=== PATIENT | female | born 1995 | race African-American/Black ===

== ENCOUNTER 2020-11-02 07:06 | Inpatient (IN) | payer MEDICAID, OTHER ==
[2020-11-02] MEDS ORDERED: Ondansetron 4 MG/2 ML SDV IVPUSH PRN (07:14)
[2020-11-02] MEDS ORDERED: Sodium Chloride 0.9% 10 ML Syringe FLUSH PRN (07:14)
[2020-11-02] MEDS ORDERED: Nalbuphine 10 MG/1 ML Vial IVPUSH PRN (07:14)
[2020-11-02] MEDS ORDERED: Oxytocin/Lactated Ringers 10 UNIT/1,000 ML BAG IV SCH ×3 (07:15)
--- NOTE | 2020-11-02 07:17 | PCM.LDHP ---
L&D History of Present Illness - General Date of Service: 11/02/20 Admit Problem/Dx: Patient Status Order with Admit Dx/Problem 11/02/20 07:14 Patient Status [ADT] Routine Admission Diagnosis/Problem Admission Diagnosis/Problem Gestational diabetes mellitus Source of Information: Patient History Limitations: Reports: No Limitations - History of Present Illness Introduction:: Patient is a 24 y/o at 39 1/7 wks who presents for IOL for GODMA2. Doing well. Good FM. 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 (Approximate): - Past Surgical History HEENT Surgical History: Reports: Other (See Below) (Neck biopsy) Social & Family History - Tobacco Use Tobacco Use Status *Q: Never Tobacco User - Alcohol Use Alcohol Use History: No - Recreational Drug Use Recreational Drug Use: No H&P Review of Systems - Review of Systems: Review Of Systems: See Below General: Reports: No Symptoms Pulmonary: Reports: No Symptoms Cardiovascular: Reports: No Symptoms Gastrointestinal: Reports: No Symptoms Genitourinary: Reports: No Symptoms Musculoskeletal: Reports: No Symptoms Psychiatric: Reports: No Symptoms Neurological: Reports: No Symptoms L&D Exam - Exam Exam: See Below - OB Specific Contraction Intensity: Irritability Movement: Active Heart Tones: Present Heart Tones per Min: 130 Heart Rate (FHR) Variability: Moderate (6-25 bmp) Presentation: Vertex - Barr Score Barr Score Cervix Position: Midposition Barr Score Consistency: Soft Barr Score Effacement: 51-70% Barr Score Dilation: 3-4 cm Barr Score Infant's Station: -1 ,0 Barr Score Total: 9 - Exam General: Alert, Oriented, Cooperative Lungs: Clear to Auscultation, Normal Respiratory Effort Cardiovascular: Regular Rate, Regular Rhythm GI/Abdominal Exam: Soft, Non-Tender Genitourinary: Normal external exam Extremities: Normal Inspection Skin: Warm, Dry, Intact - Patient Data Result Diagrams: 11/02/20 07:22 - Problem List (1) 39 weeks gestation of SNOMED Code(s): 26390628 ICD Code: Z3A.39 - 39 WEEKS GESTATION OF Status: Acute Current Visit: Yes (2) Gestational diabetes SNOMED Code(s): 13104244 ICD Code: O24.419 - GESTATIONAL DIABETES MELLITUS IN , UNSP CONTROL Status: Acute Current Visit: Yes Qualifiers: Gestational diabetes mellitus control: insulin-controlled Trimester: third trimester Qualified Code(s): O24.414 - Gestational diabetes mellitus in , insulin controlled Problem List Initiated/Reviewed/Updated: Yes Orders Last 24hrs: Active Orders 24 hr Category Date Time Status Patient Status [ADT] Routine ADT 11/02/20 07:14 Ordered Blood Glucose Check, Bedside [RC] Q4H Care 11/02/20 07:16 Ordered Communication Order [RC] ASDIRECTED Care 11/02/20 07:14 Ordered Communication Order [RC] ASDIRECTED Care 11/02/20 07:14 Ordered Communication Order [RC] ASDIRECTED Care 11/02/20 07:14 Ordered Heart Tones [RC] ASDIRECTED Care 11/02/20 07:14 Ordered Non Stress Test [RC] PER UNIT ROUTINE Care 11/02/20 07:14 Ordered Notify Provider [RC] ASDIRECTED Care 11/02/20 07:14 Ordered Notify Provider [RC] PRN Care 11/02/20 07:14 Ordered Peripheral IV Care [RC] . DIRECTED Care 11/02/20 07:14 Ordered Vaginal Exam [RC] ASDIRECTED Care 11/02/20 07:14 Ordered Vital Signs [RC] ASDIRECTED Care 11/02/20 07:14 Ordered Regular Diet [DIET] Diet 11/02/20 Breakfast Ordered CBC W/O DIFF,HEMOGRAM [HEME] Routine Lab 11/02/20 07:14 Ordered CORONAVIRUS COVID-19 LYNDSAY [MOLEC] Stat Lab 11/02/20 07:16 Ordered RAPID PLASMA REAGIN,RPR [CHEM] Routine Lab 11/02/20 07:14 Ordered TYPE AND SCREEN [BBK] Routine Lab 11/02/20 07:14 Ordered Lactated Ringers [Ringers, Lactated] 1,000 ml Med 11/02/20 07:15 Ordered IV ASDIRECTED Nalbuphine [Nubain] Med 11/02/20 07:14 Ordered 10 mg IVPUSH Q2H PRN Ondansetron [Zofran] Med 11/02/20 07:14 Ordered 4 mg IVPUSH Q4H PRN Oxytocin/Lactated Ringers [Pitocin in LR 10 Units/1,000 Med 11/02/20 07:15 Ordered ML] 10 unit in 1,000 ml IV .CONTINUOUS Oxytocin/Lactated Ringers [Pitocin in LR 10 Units/1,000 Med 11/02/20 07:15 Ordered ML] 10 unit in 1,000 ml IV TITRATE Oxytocin/Lactated Ringers [Pitocin in LR 10 Units/1,000 Med 11/02/20 07:15 Ordered ML] 10 unit in 1,000 ml IV TITRATE Sodium Chloride 0.9% [Saline Flush] Med 11/02/20 07:14 Ordered 10 ml FLUSH ASDIRECTED PRN Electronic Heart Tones Ext w TOCO [WOMSER] Ot 11/02/20 07:14 Ordered Routine Electronic Heart Tones Internal [WOMSER] Per Unit Ot 11/02/20 07:14 Ordered Routine Peripheral IV Insertion Adult [OM.PC] Routine Oth 11/02/20 07:14 Ordered Resuscitation Status Routine Resus Stat 11/02/20 07:14 Ordered Medication Orders Oxytocin/Lactated Ringer's (Pitocin In Lr 10 Units/1,000 Ml) 10 unit in 1,000 mls @ 12 mls/hr IV TITRATE CHYNA; Protocol Oxytocin/Lactated Ringer's (Pitocin In Lr 10 Units/1,000 Ml) 10 unit in 1,000 mls @ 500 mls/hr IV .CONTINUOUS CHYNA Oxytocin/Lactated Ringer's (Pitocin In Lr 10 Units/1,000 Ml) 10 unit in 1,000 mls @ 12 mls/hr IV TITRATE CHYNA; Protocol Lactated Ringer's (Ringers, Lactated) 1,000 mls @ 40 mls/hr IV ASDIRECTED CHYNA Nalbuphine HCl (Nalbuphine 10 Mg/1 Ml Vial) 10 mg IVPUSH Q2H PRN PRN Reason: Pain Ondansetron HCl (Ondansetron 4 Mg/2 Ml Sdv) 4 mg IVPUSH Q4H PRN PRN Reason: Nausea/Vomiting Sodium Chloride (Sodium Chloride 0.9% 10 Ml Syringe) 10 ml FLUSH ASDIRECTED PRN PRN Reason: Keep Vein Open Assessment/Plan Comment:: * Labs done * Blood sugar q4 now then to q2 in active labor * Pitocin and AROM for IOL * GBS negative * Pain management per patient preference * Anticipate
[2020-11-02] MEDS: Lactated Ringers 1,000 ML IV SCH ×4 (08:08→14:19)
[2020-11-02] MEDS ORDERED: ePHEDrine 50 MG/ML SDV IVPUSH PRN (09:37)
[2020-11-02] MEDS ORDERED: fentaNYL 100 MCG/2 ML SDV EPIDUR PRN (09:37)
[2020-11-02] MEDS ORDERED: diphenhydrAMINE 50 MG/ML SDV IVPUSH PRN (09:37)
[2020-11-02] MEDS ORDERED: Bupivacaine/fentaNYL/NS 100 ML Bag EPIDUR PRN (09:37)
--- NOTE | 2020-11-02 09:40 | PCM.PREANE ---
Preanesthetic Assessment - Procedure Proposed Procedure: Labor Epidural - Anesthesia/Transfusion/Family Hx Anesthesia History: Prior Anesthesia Without Reaction Family History of Anesthesia Reaction: No Transfusion History: No Prior Transfusion(s) - Review of Systems General: No Symptoms Pulmonary: No Symptoms Cardiovascular: No Symptoms Gastrointestinal: Abdominal Pain (Contractions) Neurological: Pre-Existing Deficit (Chronic back pain, worse with pregnacny. Significant back pain with previous epidural in 2019. ) Other: Reports: Diabetes (Gestational, managing with insulin. ) - Physical Assessment Vital Signs: Last Vital Signs Temp 36.3 C 11/02/20 07:25 Pulse 113 H 11/02/20 07:25 Resp 16 11/02/20 07:25 BP 110/72 11/02/20 07:25 Pulse Ox 100 11/02/20 07:25 Height: 1.75 m Weight: 112.582 kg ASA Class: 3 Mental Status: Alert & Oriented x3 Airway Class: Mallampati = 2 Dentition: Reports: Normal Dentition Thyro-Mental Finger Breadths: 3 Mouth Opening Finger Breadths: 3 ROM/Head Extension: Full Lungs: Clear to Auscultation, Normal Respiratory Effort Cardiovascular: Regular Rate, Regular Rhythm - Lab Values: Laboratory Last Values WBC 6.35 K/mm3 (3.98-10.04) 11/02/20 07:22 RBC 3.80 M/mm3 (3.98-5.22) L 11/02/20 07:22 Hgb 9.7 gm/dl (11.2-15.7) L 11/02/20 07:22 Hct 31.0 % (34.1-44.9) L 11/02/20 07:22 MCV 81.6 fl (79.4-94.8) 11/02/20 07:22 MCH 25.5 pg (25.6-32.2) L 11/02/20 07:22 MCHC 31.3 g/dl (32.2-35.5) L 11/02/20 07:22 RDW Std Deviation 46.4 fL (36.4-46.3) H 11/02/20 07:22 Plt Count 303 K/mm3 (182-369) 11/02/20 07:22 MPV 9.9 fl (9.4-12.3) 11/02/20 07:22 SARS-CoV-2 RNA (LYNDSAY) Negative (NEGATIVE) 11/02/20 07:44 Blood Type O POSITIVE 11/02/20 07:22 Gel Antibody Screen Negative 11/02/20 07:22 - Allergies Allergies/Adverse Reactions: Allergies Allergy/AdvReac Type Severity Reaction Status Date / Time No Known Allergies Allergy Verified 09/17/20 10:50 - Anesthesia Plan Pre-Op Medication Ordered: None - Acknowledgements Anesthesia Type Planned: Epidural Pt an Appropriate Candidate for the Planned Anesthesia: Yes Alternatives and Risks of Anesthesia Discussed w Pt/Guardian: Yes Pt/Guardian Understands and Agrees with Anesthesia Plan: Yes PreAnesthesia Questionnaire Other HEENT History: 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: Neurological History: Reports: Migraines Endocrine/Metabolic History: Reports: Diabetes, Gestational Hematologic History: Reports: Iron Deficiency - Past Surgical History HEENT Surgical History: Reports: Oral Surgery Other HEENT Surgeries/Procedures: Throat cyst surgery 2014 - SUBSTANCE USE Tobacco Use Status *Q: Never Tobacco User Tobacco Use Within Last Twelve Months: No Second Hand Smoke Exposure: No Recreational Drug Use History: No - HOME MEDS Home Medications: Home Meds Vits #93/Iron Fum/FA [ Formula Tablet] 1 each PO DAILY 09/17/20 [History] NIFEdipine [Procardia] 10 mg PO Q6H #64 cap 09/25/20 [Rx] - CURRENT (IN HOUSE) MEDS Current Meds: Current Medications Oxytocin/Lactated Ringer's (Pitocin In Lr 10 Units/1,000 Ml) 10 unit in 1,000 mls @ 12 mls/hr IV TITRATE CHYNA; Protocol Last Titration: 11/02/20 09:16 Dose: 8 munits/min, 48 mls/hr Documented by: Oxytocin/Lactated Ringer's (Pitocin In Lr 10 Units/1,000 Ml) 10 unit in 1,000 mls @ 500 mls/hr IV .CONTINUOUS CHYNA Lactated Ringer's (Ringers, Lactated) 1,000 mls @ 40 mls/hr IV ASDIRECTED CHYNA Last Admin: 11/02/20 08:08 Dose: 40 mls/hr Documented by: Nalbuphine HCl (Nalbuphine 10 Mg/1 Ml Vial) 10 mg IVPUSH Q2H PRN PRN Reason: Pain Ondansetron HCl (Ondansetron 4 Mg/2 Ml Sdv) 4 mg IVPUSH Q4H PRN PRN Reason: Nausea/Vomiting Sodium Chloride (Sodium Chloride 0.9% 10 Ml Syringe) 10 ml FLUSH ASDIRECTED PRN PRN Reason: Keep Vein Open Discontinued Medications Oxytocin/Lactated Ringer's (Pitocin In Lr 10 Units/1,000 Ml) 10 unit in 1,000 mls @ 12 mls/hr IV TITRATE CHYNA; Protocol
[2020-11-02] MEDS ORDERED: Misoprostol 200 MCG Tab ONE (17:27)
[2020-11-02] MEDS ORDERED: ceFAZolin 1 GM in Premix Bag 1 BAG IV ONE (17:39)
[2020-11-02] MEDS ORDERED: Misoprostol 200 MCG Tab PO STA (17:39)
--- NOTE | 2020-11-02 17:39 | PCM.DEL ---
L & D Note - General Info Date of Service: 11/02/20 - Delivery Note Labor: Induced by ARM, Induced by Oxytocin Delivery Outcome: Livebirth Infant Delivery Method: Spontaneous Vaginal Delivery-Single Infant Delivery Mode: Spontaneous Presentation: Right Occiput Anterior (ZULMA) Nuchal Cord: None Anesthesia Type: Epidural Episiotomy Type: None Laceration: 1st Degree Suture type: Vicryl Suture size: 2-0 Placenta: Intact, Spontaneous Cord: 3 Vessels Estimated Blood Loss: 350 Resuscitation Needed: Yes : Bulb Syringe, Stimulated, Warmed, Blain Used, Warmer Used Delivery Comments (Free Text/Narrative):: Patient found to be complete and began pushing. With maternal pushing effort head delivered from ZULMA presentation. No nuchal cord present. With gentle downward traction shoulders and body delivered. placed on maternal abdomen. Cord clamped and cut. Cord blood obtained. Placenta allowed time to separate and expelled intact. Inspection of perineum showed a 1st degree laceration repaired with a 2-0 Vicryl. Also had poor tone after delivery managed with cytotec and manual exploration. Given 1 gram IV Ancef for exploration - General Info Date of Service: 11/02/20 - Patient Data Vitals - Most Recent: Last Vital Signs Temp 36.3 C 11/02/20 07:25 Pulse 113 H 11/02/20 07:25 Resp 16 11/02/20 07:25 BP 110/72 11/02/20 07:25 Pulse Ox 100 11/02/20 07:25 Weight - Most Recent: 112.582 kg I&O - Last 24 Hours: Intake & Output 11/02/20 11/02/20 11/02/20 06:59 14:59 22:59 Intake Total 120 Balance 120 - Problem List & Annotations (1) 39 weeks gestation of SNOMED Code(s): 53847280 Code(s): Z3A.39 - 39 WEEKS GESTATION OF Status: Acute Current Visit: Yes (2) Gestational diabetes SNOMED Code(s): 73193157 Code(s): O24.419 - GESTATIONAL DIABETES MELLITUS IN , UNSP CONTROL Status: Acute Current Visit: Yes Qualifiers: Gestational diabetes mellitus control: insulin-controlled Trimester: third trimester Qualified Code(s): O24.414 - Gestational diabetes mellitus in , insulin controlled (3) Vaginal delivery SNOMED Code(s): 032385427 Code(s): O80 - ENCOUNTER FOR FULL-TERM UNCOMPLICATED DELIVERY Status: Acute Current Visit: Yes - Problem List Review Problem List Initiated/Reviewed/Updated: Yes - My Orders Last 24 Hours: My Active Orders 11/02/20 Breakfast Regular Diet [DIET] 11/02/20 07:14 Patient Status [ADT] Routine Communication Order [RC] ASDIRECTED Communication Order [RC] ASDIRECTED Communication Order [RC] ASDIRECTED Notify Provider [RC] ASDIRECTED Notify Provider [RC] PRN Peripheral IV Care [RC] . DIRECTED Vital Signs [RC] ASDIRECTED Nalbuphine [Nubain] 10 mg IVPUSH Q2H PRN Ondansetron [Zofran] 4 mg IVPUSH Q4H PRN Sodium Chloride 0.9% [Saline Flush] 10 ml FLUSH ASDIRECTED PRN Electronic Heart Tones Ext w TOCO [WOMSER] Routine Electronic Heart Tones Internal [WOMSER] Per Unit Routine Peripheral IV Insertion Adult [OM.PC] Routine Resuscitation Status Routine 11/02/20 07:15 Lactated Ringers [Ringers, Lactated] 1,000 ml IV ASDIRECTED Oxytocin/Lactated Ringers [Pitocin in LR 10 Units/1,000 ML] 10 unit in 1,000 ml IV .CONTINUOUS Oxytocin/Lactated Ringers [Pitocin in LR 10 Units/1,000 ML] 10 unit in 1,000 ml IV TITRATE 11/02/20 07:16 Blood Glucose Check, Bedside [RC] Q2HR 11/02/20 07:22 RAPID PLASMA REAGIN,RPR [CHEM] Routine 11/02/20 07:26 HEP C VIRUS AB [REF] Stat 11/02/20 08:08 PATIENT RETYPE [BBK] Routine 11/02/20 13:55 Communication Order [RC] ASDIRECTED - Assessment Assessment:: PPD#0 - Plan Plan:: * Routine cares * Breast feeding * Fasting blood sugar in AM. Will need 2hr GTT at 6 weeks * Discharge home in 1-2 days
[2020-11-02] MEDS ORDERED: Bupivacaine 0.25% 10 ML SDV ONE (18:00)
[2020-11-02] MEDS ORDERED: Lidocaine 1% 10 ML MDV ONE (18:00)
[2020-11-02] MEDS ORDERED: Sodium Chloride 0.9% 10 ML SDV ONE (18:00)
[2020-11-02] MEDS ORDERED: Acetaminophen 325 MG Tab PO PRN (20:19)
[2020-11-02] MEDS ORDERED: Docusate Sodium 100 MG Cap PO PRN (20:19)
[2020-11-02] MEDS ORDERED: Benzocaine/Menthol 20%-0.5% Spray 56 GM Canister TOP PRN (20:19)
[2020-11-02] MEDS ORDERED: Witch Hazel Medicated Pads 40/Jar TOP PRN (20:19)
[2020-11-02] MEDS: Ibuprofen 600 MG Tab PO PRN (21:00)
[2020-11-03] MEDS: Ibuprofen 600 MG Tab PO PRN ×2 (05:00→10:54)
--- NOTE | 2020-11-03 06:13 | PCM.PNPP ---
- General Info Date of Service: 11/03/20 Functional Status: Reports: Pain Controlled, Tolerating Diet, Ambulating, Urinating - Review of Systems General: Reports: No Symptoms Pulmonary: Reports: No Symptoms Cardiovascular: Reports: No Symptoms Gastrointestinal: Reports: No Symptoms Genitourinary: Reports: No Symptoms Musculoskeletal: Reports: No Symptoms Neurological: Reports: No Symptoms - Patient Data Vital Signs - Most Recent: Last Vital Signs Temp 36.5 C 11/03/20 05:00 Pulse 100 11/03/20 05:00 Resp 16 11/03/20 05:00 BP 113/65 11/03/20 05:00 Pulse Ox 98 11/03/20 05:00 Weight - Most Recent: 112.582 kg I&O - Last 24 Hours: Intake & Output 11/02/20 11/02/20 11/03/20 14:59 22:59 06:59 Intake Total 120 5000 Output Total 745 Balance 120 4255 Lab Results - Last 24 Hours: Laboratory Results - last 24 hr 11/02/20 11/02/20 11/02/20 Range/Units 07:22 07:22 07:22 WBC 6.35 (3.98-10.04) K/mm3 RBC 3.80 L (3.98-5.22) M/mm3 Hgb 9.7 L (11.2-15.7) gm/dl Hct 31.0 L (34.1-44.9) % MCV 81.6 (79.4-94.8) fl MCH 25.5 L (25.6-32.2) pg MCHC 31.3 L (32.2-35.5) g/dl RDW Std Deviation 46.4 H (36.4-46.3) fL Plt Count 303 (182-369) K/mm3 MPV 9.9 (9.4-12.3) fl POC Glucose (70-99) mg/dL RPR Non-reactive (NONREACTIVE) SARS-CoV-2 RNA (LYNDSAY) (NEGATIVE) Blood Type O POSITIVE Gel Antibody Screen Negative 11/02/20 11/02/20 11/02/20 Range/Units 07:44 08:23 11:56 WBC (3.98-10.04) K/mm3 RBC (3.98-5.22) M/mm3 Hgb (11.2-15.7) gm/dl Hct (34.1-44.9) % MCV (79.4-94.8) fl MCH (25.6-32.2) pg MCHC (32.2-35.5) g/dl RDW Std Deviation (36.4-46.3) fL Plt Count (182-369) K/mm3 MPV (9.4-12.3) fl POC Glucose 82 71 (70-99) mg/dL RPR (NONREACTIVE) SARS-CoV-2 RNA (LYNDSAY) Negative (NEGATIVE) Blood Type Gel Antibody Screen 11/02/20 11/02/20 Range/Units 14:08 16:49 WBC (3.98-10.04) K/mm3 RBC (3.98-5.22) M/mm3 Hgb (11.2-15.7) gm/dl Hct (34.1-44.9) % MCV (79.4-94.8) fl MCH (25.6-32.2) pg MCHC (32.2-35.5) g/dl RDW Std Deviation (36.4-46.3) fL Plt Count (182-369) K/mm3 MPV (9.4-12.3) fl POC Glucose 76 83 (70-99) mg/dL RPR (NONREACTIVE) SARS-CoV-2 RNA (LYNDSAY) (NEGATIVE) Blood Type Gel Antibody Screen Med Orders - Current: Current Medications Acetaminophen (Acetaminophen 325 Mg Tab) 650 mg PO Q4H PRN PRN Reason: mild pain or fever Benzocaine/Menthol (Benzocaine/Menthol 20%-0.5% [place] 56 Gm Canister) 0 gm TOP ASDIRECTED PRN PRN Reason: Perineal Comfort Measure Last Admin: 11/02/20 21:00 Dose: 1 canister Documented by: Docusate Sodium (Docusate Sodium 100 Mg Cap) 100 mg PO BID PRN PRN Reason: Constipation Ibuprofen (Ibuprofen 600 Mg Tab) 600 mg PO Q6H PRN PRN Reason: Mild pain or fever Last Admin: 11/03/20 05:00 Dose: 600 mg Documented by: Elias Wynn (Elias Wynn Medicated Pads 40/Jar) 1 pad TOP ASDIRECTED PRN PRN Reason: Perineal Comfort Measure Last Admin: 11/02/20 21:00 Dose: 1 container Documented by: Discontinued Medications Diphenhydramine HCl (Diphenhydramine 50 Mg/Ml Sdv) 25 mg IVPUSH Q6H PRN PRN Reason: pruritis Last Admin: 11/02/20 14:21 Dose: 25 mg Documented by: Ephedrine Sulfate (Ephedrine 50 Mg/Ml Sdv) 5 mg IVPUSH ASDIRECTED PRN PRN Reason: Hypotension Fentanyl (Fentanyl 100 Mcg/2 Ml Sdv) 100 mcg EPIDUR Q3H PRN PRN Reason: Pain Last Admin: 11/02/20 12:29 Dose: 100 mcg Documented by: Fentanyl/Bupivacaine HCl (Bupivacaine/Fentanyl/Ns 100 Ml Bag) 100 ml EPIDUR ASDIRECTED PRN PRN Reason: Pain Last Admin: 11/02/20 12:28 Dose: 100 ml Documented by: Oxytocin/Lactated Ringer's (Pitocin In Lr 10 Units/1,000 Ml) 10 unit in 1,000 mls @ 12 mls/hr IV TITRATE CHYNA; Protocol Last Titration: 11/02/20 15:00 Dose: 20 munits/min, 120 mls/hr Documented by: Oxytocin/Lactated Ringer's (Pitocin In Lr 10 Units/1,000 Ml) 10 unit in 1,000 mls @ 500 mls/hr IV .CONTINUOUS CHYNA Last Admin: 11/02/20 17:55 Dose: 500 mls/hr Documented by: Oxytocin/Lactated Ringer's (Pitocin In Lr 10 Units/1,000 Ml) 10 unit in 1,000 mls @ 12 mls/hr IV TITRATE CHYNA; Protocol Lactated Ringer's (Ringers, Lactated) 1,000 mls @ 40 mls/hr IV ASDIRECTED CHYNA Last Admin: 11/02/20 14:19 Dose: 40 mls/hr Documented by: Cefazolin Sodium/Dextrose 1 gm (/ Premix) 50 mls @ 100 mls/hr IV ONETIME ONE Stop: 11/02/20 18:08 Last Admin: 11/02/20 18:28 Dose: 100 mls/hr Documented by: Misoprostol (Misoprostol 200 Mcg Tab) Confirm Administered Dose 600 mcg .ROUTE .STK-MED ONE Stop: 11/02/20 17:28 Last Admin: 11/02/20 17:30 Dose: 600 mcg Documented by: Misoprostol (Misoprostol 200 Mcg Tab) 600 mcg PO NOW STA Stop: 11/02/20 17:40 Last Admin: 11/02/20 22:14 Dose: Not Given Documented by: Nalbuphine HCl (Nalbuphine 10 Mg/1 Ml Vial) 10 mg IVPUSH Q2H PRN PRN Reason: Pain Ondansetron HCl (Ondansetron 4 Mg/2 Ml Sdv) 4 mg IVPUSH Q4H PRN PRN Reason: Nausea/Vomiting Sodium Chloride (Sodium Chloride 0.9% 10 Ml Syringe) 10 ml FLUSH ASDIRECTED PRN PRN Reason: Keep Vein Open - Infant Interaction Disposition, : in Room with Family Interaction: Holding Infant Infant Feeding: Attempted ; Nursed Fair/Poor, Bottle Fed Infant Support Person: - Recovery Exam Fundal Tone: Firm Fundal Level: At Umbilicus Fundal Placement: Midline Lochia Amount: Small Lochia Color: Rubra/Red Perineum Description: Other (see below) Other Perinuem Description: 1st degree with repair Episiotomy/Laceration: Approximated Bladder Status: Voiding Urinary Elimination: Voided - Exam General: Alert, Oriented, Cooperative GI/Abdominal Exam: Soft, Non-Tender - Problem List & Annotations (1) 39 weeks gestation of SNOMED Code(s): 11458313 Code(s): Z3A.39 - 39 WEEKS GESTATION OF Status: Acute Current Visit: Yes (2) Gestational diabetes SNOMED Code(s): 46991143 Code(s): O24.419 - GESTATIONAL DIABETES MELLITUS IN , UNSP CONTROL Status: Acute Current Visit: Yes Qualifiers: Gestational diabetes mellitus control: insulin-controlled Trimester: third trimester Qualified Code(s): O24.414 - Gestational diabetes mellitus in , insulin controlled (3) Vaginal delivery SNOMED Code(s): 731692828 Code(s): O80 - ENCOUNTER FOR FULL-TERM UNCOMPLICATED DELIVERY Status: Acute Current Visit: Yes - Problem List Review Problem List Initiated/Reviewed/Updated: Yes - My Orders Last 24 Hours: My Active Orders 11/02/20 07:14 Resuscitation Status Routine 11/02/20 07:26 HEP C VIRUS AB [REF] Stat 11/02/20 Dinner Regular Diet [DIET] 11/02/20 20:19 Acetaminophen [TylenoL] 650 mg PO Q4H PRN Benzocaine/Menthol [Dermoplast Pain Relief [place]] See Dose Instructions TOP ASDIRECTED PRN Docusate Sodium [Colace] 100 mg PO BID PRN Ibuprofen [Motrin] 600 mg PO Q6H PRN witch Yennifer [Tucks] 1 pad TOP ASDIRECTED PRN Heat Therapy [OM.PC] PRN 11/02/20 20:19 Activity as Tolerated [RC] PER UNIT ROUTINE Vital Signs [RC] ,15,21,03 Assess Lochia [WOMSER] Per Unit Routine Assess Uterine Involution [WOMSER] Per Unit Routine Breast Pump [WOMSER] Per Unit Routine Ice Therapy [OM.PC] Per Unit Routine Perineal Care [OM.PC] Per Unit Routine Peripheral IV Discontinue [OM.PC] Routine Sitz Bath [OM.PC] Per Unit Routine 11/03/20 05:00 Blood Glucose Check, Bedside [RC] ONETIME 11/03/20 20:19 Heat Therapy [OM.PC] PRN - Assessment Assessment:: PPD#1 - Plan Plan:: * Routine cares * Breast feeding * Fasting blood sugar this morning was appropriate. Will need 2hr GTT at 6 weeks * Discharge home today
--- NOTE | 2020-11-03 07:21 | PCM.DCSUM1 ---
Discharge Summary - Discharge Data Discharge Date: 11/03/20 Discharge Disposition: Home, Self-Care 01 Condition: Good - Referral to Home Health Primary Care Physician: Chrissy Moore MD - Discharge Diagnosis/Problem(s) (1) 39 weeks gestation of SNOMED Code(s): 58531325 ICD Code: Z3A.39 - 39 WEEKS GESTATION OF Status: Acute Current Visit: Yes (2) Gestational diabetes SNOMED Code(s): 69872997 ICD Code: O24.419 - GESTATIONAL DIABETES MELLITUS IN , UNSP CONTROL Status: Acute Current Visit: Yes Qualifiers: Gestational diabetes mellitus control: insulin-controlled Trimester: third trimester Qualified Code(s): O24.414 - Gestational diabetes mellitus in , insulin controlled (3) Vaginal delivery SNOMED Code(s): 654946569 ICD Code: O80 - ENCOUNTER FOR FULL-TERM UNCOMPLICATED DELIVERY Status: Acute Current Visit: Yes - Patient Summary/Data Complications: None Consults: None Recommended Follow-up Testing/Procedures: Follow up in 3 weeks for check Hospital Course: 24 y/o at 39 1/7 wks who presented for IOL for GODMA2. Induction done with pitocin and AROM. Progressed well to complete dilation. Underwent an uncomplicated . See delivery note. did well and was discharged home on PPD#1 - Patient Instructions Diet: Regular Diet as Tolerated Activity: As Tolerated Activity, Other: Pelvic rest for 6 weeks Driving: May Drive Today Showering/Bathing: May Shower Showering/Bathing, Other: May Bathe Notify Provider of: Fever, Increased Pain, Swelling and Redness, Drainage, Nausea and/or Vomiting - Discharge Plan *PRESCRIPTION DRUG MONITORING PROGRAM REVIEWED*: No *COPY OF PRESCRIPTION DRUG MONITORING REPORT IN PATIENT ALF: No Home Medications: Home Meds Vits #93/Iron Fum/FA [ Formula Tablet] 1 each PO DAILY 09/17/20 [History] Docusate Sodium [Colace] 100 mg PO BID PRN cap 11/03/20 [Rx] Ibuprofen [Motrin] 600 mg PO Q6H PRN tablet 11/03/20 [Rx] Referrals: Chrissy Moore MD [Primary Care Provider] - (3 weeks for check ) - Discharge Summary/Plan Comment DC Time >30 min.: No - Patient Data Vitals - Most Recent: Last Vital Signs Temp 36.5 C 11/03/20 05:00 Pulse 100 11/03/20 05:00 Resp 16 11/03/20 05:00 BP 113/65 11/03/20 05:00 Pulse Ox 98 11/03/20 05:00 Weight - Most Recent: 112.582 kg I&O - Last 24 hours: Intake & Output 11/02/20 11/03/20 11/03/20 22:59 06:59 14:59 Intake Total 5240 Output Total 745 Balance 4495 Lab Results - Last 24 hrs: Laboratory Results - last 24 hr 11/02/20 11/02/20 11/02/20 Range/Units 07:22 07:22 07:22 WBC 6.35 (3.98-10.04) K/mm3 RBC 3.80 L (3.98-5.22) M/mm3 Hgb 9.7 L (11.2-15.7) gm/dl Hct 31.0 L (34.1-44.9) % MCV 81.6 (79.4-94.8) fl MCH 25.5 L (25.6-32.2) pg MCHC 31.3 L (32.2-35.5) g/dl RDW Std Deviation 46.4 H (36.4-46.3) fL Plt Count 303 (182-369) K/mm3 MPV 9.9 (9.4-12.3) fl POC Glucose (70-99) mg/dL RPR Non-reactive (NONREACTIVE) SARS-CoV-2 RNA (LYNDSAY) (NEGATIVE) Blood Type O POSITIVE Gel Antibody Screen Negative 11/02/20 11/02/20 11/02/20 Range/Units 07:44 08:23 11:56 WBC (3.98-10.04) K/mm3 RBC (3.98-5.22) M/mm3 Hgb (11.2-15.7) gm/dl Hct (34.1-44.9) % MCV (79.4-94.8) fl MCH (25.6-32.2) pg MCHC (32.2-35.5) g/dl RDW Std Deviation (36.4-46.3) fL Plt Count (182-369) K/mm3 MPV (9.4-12.3) fl POC Glucose 82 71 (70-99) mg/dL RPR (NONREACTIVE) SARS-CoV-2 RNA (LYNDSAY) Negative (NEGATIVE) Blood Type Gel Antibody Screen 11/02/20 11/02/20 11/03/20 Range/Units 14:08 16:49 05:11 WBC (3.98-10.04) K/mm3 RBC (3.98-5.22) M/mm3 Hgb (11.2-15.7) gm/dl Hct (34.1-44.9) % MCV (79.4-94.8) fl MCH (25.6-32.2) pg MCHC (32.2-35.5) g/dl RDW Std Deviation (36.4-46.3) fL Plt Count (182-369) K/mm3 MPV (9.4-12.3) fl POC Glucose 76 83 72 (70-99) mg/dL RPR (NONREACTIVE) SARS-CoV-2 RNA (LYNDSAY) (NEGATIVE) Blood Type Gel Antibody Screen Med Orders - Current: Current Medications Acetaminophen (Acetaminophen 325 Mg Tab) 650 mg PO Q4H PRN PRN Reason: mild pain or fever Benzocaine/Menthol (Benzocaine/Menthol 20%-0.5% [place] 56 Gm Canister) 0 gm TOP ASDIRECTED PRN PRN Reason: Perineal Comfort Measure Last Admin: 11/02/20 21:00 Dose: 1 canister Documented by: Docusate Sodium (Docusate Sodium 100 Mg Cap) 100 mg PO BID PRN PRN Reason: Constipation Ibuprofen (Ibuprofen 600 Mg Tab) 600 mg PO Q6H PRN PRN Reason: Mild pain or fever Last Admin: 11/03/20 05:00 Dose: 600 mg Documented by: Elias Wynn (Elias Wynn Medicated Pads 40/Jar) 1 pad TOP ASDIRECTED PRN PRN Reason: Perineal Comfort Measure Last Admin: 11/02/20 21:00 Dose: 1 container Documented by: Discontinued Medications Diphenhydramine HCl (Diphenhydramine 50 Mg/Ml Sdv) 25 mg IVPUSH Q6H PRN PRN Reason: pruritis Last Admin: 11/02/20 14:21 Dose: 25 mg Documented by: Ephedrine Sulfate (Ephedrine 50 Mg/Ml Sdv) 5 mg IVPUSH ASDIRECTED PRN PRN Reason: Hypotension Fentanyl (Fentanyl 100 Mcg/2 Ml Sdv) 100 mcg EPIDUR Q3H PRN PRN Reason: Pain Last Admin: 11/02/20 12:29 Dose: 100 mcg Documented by: Fentanyl/Bupivacaine HCl (Bupivacaine/Fentanyl/Ns 100 Ml Bag) 100 ml EPIDUR ASDIRECTED PRN PRN Reason: Pain Last Admin: 11/02/20 12:28 Dose: 100 ml Documented by: Oxytocin/Lactated Ringer's (Pitocin In Lr 10 Units/1,000 Ml) 10 unit in 1,000 mls @ 12 mls/hr IV TITRATE CHYNA; Protocol Last Titration: 11/02/20 15:00 Dose: 20 munits/min, 120 mls/hr Documented by: Oxytocin/Lactated Ringer's (Pitocin In Lr 10 Units/1,000 Ml) 10 unit in 1,000 mls @ 500 mls/hr IV .CONTINUOUS CHYNA Last Admin: 11/02/20 17:55 Dose: 500 mls/hr Documented by: Oxytocin/Lactated Ringer's (Pitocin In Lr 10 Units/1,000 Ml) 10 unit in 1,000 mls @ 12 mls/hr IV TITRATE CHYNA; Protocol Lactated Ringer's (Ringers, Lactated) 1,000 mls @ 40 mls/hr IV ASDIRECTED CHYNA Last Admin: 11/02/20 14:19 Dose: 40 mls/hr Documented by: Cefazolin Sodium/Dextrose 1 gm (/ Premix) 50 mls @ 100 mls/hr IV ONETIME ONE Stop: 11/02/20 18:08 Last Admin: 11/02/20 18:28 Dose: 100 mls/hr Documented by: Misoprostol (Misoprostol 200 Mcg Tab) Confirm Administered Dose 600 mcg .ROUTE .STK-MED ONE Stop: 11/02/20 17:28 Last Admin: 11/02/20 17:30 Dose: 600 mcg Documented by: Misoprostol (Misoprostol 200 Mcg Tab) 600 mcg PO NOW STA Stop: 11/02/20 17:40 Last Admin: 11/02/20 22:14 Dose: Not Given Documented by: Nalbuphine HCl (Nalbuphine 10 Mg/1 Ml Vial) 10 mg IVPUSH Q2H PRN PRN Reason: Pain Ondansetron HCl (Ondansetron 4 Mg/2 Ml Sdv) 4 mg IVPUSH Q4H PRN PRN Reason: Nausea/Vomiting Sodium Chloride (Sodium Chloride 0.9% 10 Ml Syringe) 10 ml FLUSH ASDIRECTED PRN PRN Reason: Keep Vein Open
--- NOTE | 2020-11-03 09:49 | PCM48HPAN ---
Post Anesthesia Note - EVALUATION WITHIN 48HRS OF ANESTHETIC Vital Signs in Normal Range: Yes Patient Participated in Evaluation: Yes Respiratory Function Stable: Yes Airway Patent: Yes Cardiovascular Function Stable: Yes Hydration Status Stable: Yes Pain Control Satisfactory: Yes Nausea and Vomiting Control Satisfactory: Yes Mental Status Recovered: Yes Vital Signs: Last Vital Signs Temp 36.5 C 11/03/20 05:00 Pulse 100 11/03/20 05:00 Resp 16 11/03/20 05:00 BP 113/65 11/03/20 05:00 Pulse Ox 98 11/03/20 05:00
== END 2020-11-03 21:08 | disposition home or self-care (01) | DRG 807 ==
LOC: JD.OB 07:06 → OBSVTOIN 17:19 → JD.OB 17:19
PROVIDERS: ADMIT Obstetrics & Gynecology; ATTEND Obstetrics & Gynecology
PROC: 10E0XZZ Delivery of Products of Conception, External Approach (ICD-10-PCS; principal; 2020-11-02)
PROC: 10907ZC Drainage of Amniotic Fluid, Therapeutic from Products of Conception, Via Natural or Artificial Opening (ICD-10-PCS; 2020-11-02)
PROC: 3E033VJ Introduction of Other Hormone into Peripheral Vein, Percutaneous Approach (ICD-10-PCS; 2020-11-02)
PROC: 0HQ9XZZ Repair Perineum Skin, External Approach (ICD-10-PCS; 2020-11-02)
PROC: 3E0R3BZ Introduction of Anesthetic Agent into Spinal Canal, Percutaneous Approach (ICD-10-PCS; 2020-11-02)
DX: O24.414 Gestational diabetes mellitus in pregnancy, insulin controlled (principal); Z37.0 Single live birth; Z3A.39 39 weeks gestation of pregnancy; O70.0 First degree perineal laceration during delivery
CPT/HCPCS: 36415; 51702; 59025; 59409; 82947; 85027; 86592; 86803; 86850; 86900; 86901; A9270-GY; J0690; J1200; J2590; J3010; J3490; J7120; U0002